=== PATIENT | female | born 1980 | race Caucasian/White ===

== ENCOUNTER 2022-06-11 18:56 | Emergency (ER) | payer OTHER ==
[2022-06-11] MEDS ORDERED: ACETAMINOPHEN TAB 325 MG TAB PO STA (19:06)
[2022-06-11] MEDS ORDERED: IBUPROFEN 400 MG TAB PO STA (19:06)
[2022-06-11] MEDS ORDERED: ONDANSETRON ODT 4 MG TAB PO STA (19:14)
--- NOTE | 2022-06-11 19:14 | ED ---
General Adult HPI - General Chief complaint: Upper Respiratory Infection Stated complaint: Nausea Time Seen by Provider: 06/11/22 19:06 Source: patient, RN notes reviewed Mode of arrival: ambulatory Limitations: no limitations - History of Present Illness Initial comments: 41-year-old female with no significant past medical history presents the emergency department with a chief complaint of fever. Patient reports that she's had other accompanying symptoms of cough, nausea times one week 1 week. She was evaluated for this a week ago at the urgent care reports to the nearest emergency department if symptoms worsen or persist. She reports no symptomatic improvement. She has not given any prescriptions for antibiotics. She denies any chest pain, palpitations, shortness of breath, dyspnea. She has been taking DayQuil [id number] with out symptomatic improvement - Related Data Previous Rx's Medication Instructions Recorded Azithromycin [Zithromax] 250 mg PO DAILY 1 Days #5 tab 06/11/22 Allergies Allergy/AdvReac Type Severity Reaction Status Date / Time No Known Allergies Allergy Verified 06/11/22 19:02 Review of Systems ROS Statement: Those systems with pertinent positive or pertinent negative responses have been documented in the HPI. ROS Other: All systems not noted in ROS Statement are negative. Past Medical History Past Medical History: No Reported History History of Any Multi-Drug Resistant Organisms: None Reported Past Surgical History: No Surgical Hx Reported Past Psychological History: No Psychological Hx Reported Smoking Status: Never smoker Past Alcohol Use History: None Reported Past Drug Use History: None Reported General Exam Limitations: no limitations General appearance: alert, in no apparent distress Head exam: Present: atraumatic, normocephalic, normal inspection Eye exam: Present: normal appearance, PERRL, EOMI. Absent: scleral icterus, conjunctival injection, periorbital swelling ENT exam: Present: normal exam, mucous membranes moist Neck exam: Present: normal inspection. Absent: tenderness, meningismus, lymphadenopathy Respiratory exam: Present: normal lung sounds bilaterally, decreased breath sounds (R middle lobe ). Absent: respiratory distress, wheezes, rales, rhonchi, stridor Cardiovascular Exam: Present: regular rate, normal rhythm, normal heart sounds. Absent: systolic murmur, diastolic murmur, rubs, gallop, clicks GI/Abdominal exam: Present: soft, normal bowel sounds. Absent: distended, tenderness, guarding, rebound, rigid Extremities exam: Present: normal inspection, full ROM, normal capillary refill. Absent: tenderness, pedal edema, joint swelling, calf tenderness Back exam: Present: normal inspection Neurological exam: Present: alert, oriented X3, CN II-XII intact Psychiatric exam: Present: normal affect, normal mood Skin exam: Present: warm, dry, intact, normal color. Absent: rash Course Vital Signs 06/11/22 06/11/22 06/11/22 18:59 20:51 22:14 Temperature 102.1 F H 100.8 F H Pulse Rate 126 H 95 Respiratory 20 18 18 Rate Blood Pressure 132/84 126/84 O2 Sat by Pulse 98 95 Oximetry - Reevaluation(s) Reevaluation #1: 06/11/22 20:58 Patient updated and reevaluated. Updated on chest x-ray results. Medical Decision Making - Medical Decision Making Was pt. sent in by a medical professional or institution (, PA, [employer] INSPECTOR, urgent care, hospital, or penitentiary...) When possible be specific @ -[No] Did you speak to anyone other than the patient for history (EMS, parent, family, police, friend...)? What history was obtained from this source @ -[No] Did you review nursing and triage notes (agree or disagree)? Why? @ -[I reviewed and agree with nursing and triage notes] Were old charts reviewed (outside hosp., previous admission, EMS record, old EKG, old radiological studies, urgent care reports/EKG's, penitentiary records)? Report findings @ -[No old charts were reviewed] Differential Diagnosis (chest pain, altered mental status, abdominal pain women, abdominal pain men, vaginal bleeding, weakness, fever, dyspnea, syncope, headache, dizziness, GI bleed, back pain, seizure, CVA, palpatations, mental health, musculoskeletal)? @ -[not applicable] EKG interpreted by me (3pts min.). @ -[As above] X-rays interpreted by me (1pt min.). @ -chest x-ray reveals pneumonia and right middle lobe CT interpreted by me (1pt min.). @ -[None done] U/S interpreted by me (1pt. min.). @ -[None done] What testing was considered but not performed or refused? (CT, X-rays, U/S, labs)? Why? @ -[None] What meds were considered but not given or refused? Why? @ -[None] Did you discuss the management of the patient with other professionals ( professionals i.e. , YOANA, [employer]ER INSPECTOR, lab, RT, psych nurse, social science teacher, medical insurance claims processor, teacher, child support case officer, child support case officer)? Give summary @ -[No] Was smoking cessation discussed for >3mins.? @ -[No] Was critical care preformed (if so, how long)? @ -[No] Were there social determinants of health that impacted care today? How? (Homelessness, low income, unemployed, alcoholism, drug addiction, t ransportation, low edu. Level, literacy, decrease access to med. care, senior living, rehab)? @ -[No] Was there de-escalation of care discussed even if they declined (Discuss DNR or withdrawal of care, Hospice)? DNR status @ -[No] What co-morbidities impacted this encounter? (DM, HTN, Smoking, COPD, CAD, Cancer, CVA, ARF, Chemo, Hep., AIDS, mental health diagnosis, sleep apnea, morbid obesity)? @ -[None] Was patient admitted / discharged? Hospital course, mention meds given and route, prescriptions, significant lab abnormalities, going to OR and other pertinent info. @ Discharged. This is a 41 year female who presents to the emergency department with fever. Patient had a thorough history and physical exam performed physical exam is essentially unremarkable heart rate regular rate and rhythm, lungs clear to auscultation bilaterally, right middlle lobe with diminished breath sounds. abdomen is soft and non-tender. CXR suggest R middle lobe pnuemonia. Labs unremarkable. Patient was given Tylenol, Motrin, 1 L IV fluids and 1 dose of azithromycin in the ED was symptomatically relief. She was given a prescription for azithromycin I discussed results in detail with the patient's mother who verbalized understanding and all questions were addressed. Return precautions were discussed at length. She was encouraged to follow up with her control manager in 1-2 days. Case discussed with ROC Bowman who agrees with plan of care Undiagnosed new problem with uncertain prognosis? @ -[No] Drug Therapy requiring intensive monitoring for toxicity (Heparin, Nitro, Insulin, Cardizem)? @ -[No] Were any procedures done? @ -[No] Diagnosis/symptom? @ -fever - community acquired pneumonia Acute, or Chronic, or Acute on Chronic? @ -acute Uncomplicated (without systemic symptoms) or Complicated (systemic symptoms)? @ -uncomplicated Side effects of treatment? @ -[No] Exacerbation, Progression, or Severe Exacerbation? @ -[No] Poses a threat to life or bodily function? How? (Chest pain, [place], [place], pneumonia, PE, COPD, DKA, ARF, appy, cholecystitis, CVA, Diverticulitis, Homicidal, Suicidal, threat to staff... and all critical care pts) @ -low likelihood - Lab Data Result diagrams: 06/11/22 20:40 06/11/22 20:40 Lab Results 06/11/22 06/11/22 06/11/22 Range/Units 19:14 20:40 20:40 WBC 9.9 (3.8-10.6) k/uL RBC 4.32 (3.80-5.40) m/uL Hgb 12.7 (11.4-16.0) gm/dL Hct 34.0 (34.0-46.0) % MCV 78.8 L (80.0-100.0) fL MCH 29.3 (25.0-35.0) pg MCHC 37.2 H (31.0-37.0) g/dL RDW 13.4 (11.5-15.5) % Plt Count 319 (150-450) k/uL MPV 7.6 Neutrophils % 84 % Lymphocytes % 8 % Monocytes % 4 % Eosinophils % 0 % Basophils % 0 % Neutrophils # 8.3 H (1.3-7.7) k/uL Lymphocytes # 0.8 L (1.0-4.8) k/uL Monocytes # 0.4 (0-1.0) k/uL Eosinophils # 0.0 (0-0.7) k/uL Basophils # 0.0 (0-0.2) k/uL Sodium 133 L (137-145) mmol/L Potassium 4.0 (3.5-5.1) mmol/L Chloride 98 (98-107) mmol/L Carbon Dioxide 21 L (22-30) mmol/L Anion Gap 14 mmol/L BUN 8 (7-17) mg/dL Creatinine 0.51 L (0.52-1.04) mg/dL Est GFR (CKD-EPI)AfAm >90 (>60 ml/min/1.73 sqM) Est GFR (CKD-EPI)NonAf >90 (>60 ml/min/1.73 sqM) Glucose 109 H (74-99) mg/dL Calcium 8.8 (8.4-10.2) mg/dL Influenza Type A (PCR) Not Detected (Not Detectd) Influenza Type B (PCR) Not Detected (Not Detectd) RSV (PCR) Not Detected (Not Detectd) SARS-CoV-2 (PCR) Not Detected (Not Detectd) Disposition Clinical Impression: Community acquired pneumonia Disposition: HOME SELF-CARE Condition: Stable Instructions (If sedation given, give patient instructions): Upper Respiratory Infection (ED) Additional Instructions: These return to the nearest emergency department if symptoms worsen or persist Prescriptions: Azithromycin [Zithromax] 250 mg PO DAILY 1 Days #5 tab Is patient prescribed a controlled substance at d/c from ED?: No Referrals: Go Cardona MD [Primary Care Provider] - 1-2 days Time of Disposition: 22:06
--- NOTE | 2022-06-11 19:29 | XR ---
EXAMINATION TYPE: XR chest 2V DATE OF EXAM: 06/11/2022 COMPARISON: NONE TECHNIQUE: PA and lateral views submitted. HISTORY: Fever FINDINGS: There is right middle lobe large area of consolidation. There is no pneumothorax, pleural effusion, o r focal pneumonia. Heart size normal and no overt failure. Osseous structures intact. IMPRESSION: 1. Right middle lobe pneumonia.
[2022-06-11] MEDS ORDERED: SODIUM CHLORIDE 0.9% 1,000 ML IV ONE (20:13)
[2022-06-11 20:52] VITALS: BP 126/84; PULSE 95; RESP 18; TEMP 100.8
[2022-06-11 21:04] LABS: Basophils % (A) 0 %; Eosinophils % (A) 0 %; HGB 12.7 gm/dL (11.4-16.0); Lymphocytes # (A) 0.8 k/uL (1.0-4.8); Lymphocytes % (A) 8 %; MCH 29.3 pg (25.0-35.0); MCHC 37.2 g/dL (31.0-37.0); MCV 78.8 fL (80.0-100.0); Mean Platelet Volume 7.6; Monocytes # (A) 0.4 k/uL (0-1.0); Monocytes % (A) 4 %; Neutrophils # (A) 8.3 k/uL (1.3-7.7); Neutrophils % (A) 84 %; Platelet Count 319 k/uL (150-450); RBC 4.32 m/uL (3.80-5.40); RDW 13.4 % (11.5-15.5); WBC 9.9 k/uL (3.8-10.6)
[2022-06-11 21:13] LABS: African American GFR (CKD) >90 (>60 ml/min/1.73 sqM); Anion Gap 14 mmol/L; Blood Urea Nitrogen 8 mg/dL (7-17); Calcium 8.8 mg/dL (8.4-10.2); Carbon Dioxide 21 mmol/L (22-30); Chloride 98 mmol/L (98-107); Glucose 109 mg/dL (74-99); Non-African American GFR(CKD) >90 (>60 ml/min/1.73 sqM); Sodium 133 mmol/L (137-145)
[2022-06-11] MEDS ORDERED: cefTRIAXone IN SWFI 1,000 MG/10 ML SYRINGE IVP STA (21:58)
[2022-06-11] MEDS ORDERED: AZITHROMYCIN 250 MG TAB PO STA (21:58)
== END 2022-06-11 22:15 | disposition home or self-care (01) ==
LOC: EC 18:56
DX: J18.9 Pneumonia, unspecified organism (principal); Z20.822 Contact with and (suspected) exposure to COVID-19
CPT/HCPCS: 36415; 71046; 80048; 85025; 87636; 96361; 96374; 99283